=== PATIENT | male | born 1960 | race Two or more races ===

== ENCOUNTER → 2023-08-19 | Outpatient (CLI) | payer MEDICAID ==
[2023-08-19 07:15] LABS: Urine Bacteria None Seen /hpf (None Seen)
[2023-08-19 07:22] LABS: Basophils # (auto) 0.1 10 ^3/uL (0-0.2); Basophils % (auto) 1.3 % (0.0-2.0); Eosinophils # (auto) 0.2 10 ^3/uL (0-0.8); Eosinophils % (auto) 4.4 % (0.0-7.0); Hematocrit 45.9 % (41.0-53.0); Hemoglobin 15.7 g/dL (13.5-17.5); Lymphocytes # (auto) 1.5 10 ^3/uL (0.4-5.4); Lymphocytes % (auto) 29.6 % (10.0-50.0); Mean Corpuscular Hgb Conc. 34.1 g/dL (32.0-36.0); Mean Corpuscular Volume 93.7 fL (80.0-100.0); Monocytes # (auto) 0.4 10 ^3/uL (0-1.3); Neutrophils # (auto) 2.9 10 ^3/uL (1.6-8.6); Neutrophils % (auto) 56.7 % (37.0-80.0); Red Blood Cells 4.91 10^6/uL (4.5-5.90); Red Cell Distribution Width 13.2 % (11.8-14.3); White Blood Cell 5.1 10^3/uL (4.4-10.8)
[2023-08-19 07:32] LABS: Urine Blood Negative /uL (Negative); Urine Clarity Clear (Clear); Urine Color Yellow (Yellow); Urine Mucus FEW (None Seen); Urine Protein, UAD TRACE (Negative); Urine Specific Gravity 1.036 (1.001-1.035); Urine Urobilinogen Normal (Negative); Urine WBC 1 /hpf (0 - 3)
[2023-08-19 07:46] LABS: Creatinine, Urine 210.2 mg/dL (30.0-125.0)
[2023-08-19 07:48] LABS: Alanine Aminotransferase 27 U/L (7-40); Alkaline Phosphatase 130 U/L (46-116); Anion Gap 6 (5-15); BUN/Creatinine Ratio 12.9 (10.0-20.0); Blood Urea Nitrogen 12 mg/dL (9-23); Calcium 9.7 mg/dL (8.5-10.1); Carbon Dioxide 27 mmol/L (20-30); Chloride 105 mmol/L (98-107); Glucose 294 mg/dL (74-106); LDL Cholesterol 166 mg/dL (< 100); Potassium 4.5 mmol/L (3.5-5.1); Sodium 138 mmol/L (136-145); Triglycerides 185 mg/dL (< 150)
[2023-08-19 07:49] LABS: Albumin 4.5 g/dL (3.2-4.8); Aspartate Aminotransferase 16 U/L (13-40); Cholesterol 234 mg/dL (< 200); HDL Cholesterol 55 mg/dL (40-59)
[2023-08-19 07:50] LABS: Bilirubin, Total 0.7 mg/dL (0.2-1.0); Total Protein 7.1 g/dL (5.7-8.2)
== END | disposition home or self-care (01) ==
LOC: LAB 07:01
PROVIDERS: ATTEND Internal Medicine
DX: Z00.01 Encounter for general adult medical examination with abnormal findings (principal); E11.69 Type 2 diabetes mellitus with other specified complication; E78.5 Hyperlipidemia, unspecified; E55.9 Vitamin D deficiency, unspecified; R74.8 Abnormal levels of other serum enzymes; E11.40 Type 2 diabetes mellitus with diabetic neuropathy, unspecified
CPT/HCPCS: 36415; 80053; 80061; 81001; 82043; 82306; 82570; 83036; 84439; 84443; 85025

== ENCOUNTER → 2023-09-30 | Outpatient (CLI) | payer MEDICAID ==
[2023-09-30 06:44] LABS: Urine Bacteria None Seen /hpf (None Seen)
[2023-09-30 06:58] LABS: Urine Blood Negative /uL (Negative); Urine Clarity Clear (Clear); Urine Color Yellow (Yellow); Urine Mucus FEW (None Seen); Urine Protein, UAD Negative (Negative); Urine Specific Gravity 1.027 (1.001-1.035); Urine Urobilinogen Normal (Negative); Urine WBC 1 /hpf (0 - 3); Urine pH 5.5 (5.0-9.0)
[2023-09-30 07:42] LABS: Alanine Aminotransferase 14 U/L (7-40); Albumin 4.4 g/dL (3.2-4.8); Alkaline Phosphatase 120 U/L (46-116); Anion Gap 7 (5-15); Aspartate Aminotransferase < 8 U/L (13-40); BUN/Creatinine Ratio 25.6 (10.0-20.0); Blood Urea Nitrogen 21 mg/dL (9-23); Calcium 9.9 mg/dL (8.7-10.4); Carbon Dioxide 25 mmol/L (20-30); Chloride 106 mmol/L (98-107); Glucose 207 mg/dL (74-106); Potassium 4.6 mmol/L (3.5-5.1); Sodium 138 mmol/L (136-145)
[2023-09-30 07:43] LABS: Bilirubin, Total 0.5 mg/dL (0.2-1.0); Total Protein 6.7 g/dL (5.7-8.2)
== END | disposition home or self-care (01) ==
LOC: LAB 06:17
PROVIDERS: ATTEND Internal Medicine
DX: E11.69 Type 2 diabetes mellitus with other specified complication (principal); E11.40 Type 2 diabetes mellitus with diabetic neuropathy, unspecified; R74.8 Abnormal levels of other serum enzymes; R82.90 Unspecified abnormal findings in urine
CPT/HCPCS: 36415; 80053; 81001

== ENCOUNTER → 2023-12-12 | Outpatient (CLI) | payer MEDICAID ==
[2023-12-12 06:17] LABS: Urine Bacteria None Seen /hpf (None Seen)
[2023-12-12 06:55] LABS: Urine Blood Negative /uL (Negative); Urine Clarity Clear (Clear); Urine Color Light-Yellow (Yellow); Urine Mucus FEW (None Seen); Urine Protein, UAD Negative (Negative); Urine Specific Gravity 1.017 (1.001-1.035); Urine Urobilinogen Normal (Negative); Urine WBC <1 /hpf (0 - 3)
[2023-12-12 06:59] LABS: Alanine Aminotransferase 17 U/L (7-40); Albumin 4.3 g/dL (3.2-4.8); Alkaline Phosphatase 111 U/L (46-116); Anion Gap 5 (5-15); Aspartate Aminotransferase 10 U/L (13-40); BUN/Creatinine Ratio 15.6 (10.0-20.0); Blood Urea Nitrogen 14 mg/dL (9-23); Calcium 9.9 mg/dL (8.7-10.4); Carbon Dioxide 26 mmol/L (20-31); Chloride 109 mmol/L (98-107); Glucose 120 mg/dL (74-106); LDL Cholesterol 101 mg/dL (< 100); Potassium 4.6 mmol/L (3.5-5.1); Sodium 140 mmol/L (136-145); Triglycerides 175 mg/dL (< 150)
[2023-12-12 07:00] LABS: Bilirubin, Total 0.5 mg/dL (0.2-1.0); Cholesterol 164 mg/dL (< 200); HDL Cholesterol 49 mg/dL (40-59); Total Protein 6.8 g/dL (5.7-8.2)
== END | disposition home or self-care (01) ==
LOC: LAB 06:09
PROVIDERS: ATTEND Internal Medicine
DX: I10 Essential (primary) hypertension (principal); E11.69 Type 2 diabetes mellitus with other specified complication
CPT/HCPCS: 36415; 80053; 80061; 81001

== ENCOUNTER → 2024-07-16 | Outpatient (CLI) | payer MEDICAID ==
[2024-07-16 07:35] LABS: Anion Gap 8 (5-15); Carbon Dioxide 27 mmol/L (20-31); Chloride 102 mmol/L (98-107); Potassium 4.7 mmol/L (3.5-5.1); Sodium 137 mmol/L (136-145)
[2024-07-16 07:37] LABS: Calcium 9.4 mg/dL (8.7-10.4)
[2024-07-16 07:41] LABS: BUN/Creatinine Ratio 17.2 (10.0-20.0); Blood Urea Nitrogen 16 mg/dL (9-23)
[2024-07-16 07:42] LABS: Glucose 290 mg/dL (74-106)
[2024-07-16 08:17] LABS: HDL Cholesterol 57 mg/dL (40-59)
[2024-07-16 08:21] LABS: Cholesterol 231 mg/dL (< 200); LDL Cholesterol 164 mg/dL (< 100); Triglycerides 175 mg/dL (< 150)
== END | disposition home or self-care (01) ==
LOC: LAB 06:13
PROVIDERS: ATTEND Internal Medicine
DX: I10 Essential (primary) hypertension (principal); E11.69 Type 2 diabetes mellitus with other specified complication; E78.2 Mixed hyperlipidemia; R74.8 Abnormal levels of other serum enzymes; Z12.5 Encounter for screening for malignant neoplasm of prostate
CPT/HCPCS: 36415; 80048; 80061; 83036; 84153

== ENCOUNTER 2024-08-05 06:02 | Outpatient (CLI) | payer MEDICAID ==
[2024-08-05 07:57] LABS: Alanine Aminotransferase 17 U/L (7-40); Anion Gap 8 (5-15); BUN/Creatinine Ratio 24.7 (10.0-20.0); Carbon Dioxide 25 mmol/L (20-31); Chloride 106 mmol/L (98-107); Sodium 139 mmol/L (136-145); Total Protein 6.6 g/dL (5.7-8.2)
[2024-08-05 07:58] LABS: Albumin 4.4 g/dL (3.2-4.8); Alkaline Phosphatase 125 U/L (46-116); Blood Urea Nitrogen 24 mg/dL (9-23); Creatine Kinase IFCC 80 U/L (46-171); Glucose 290 mg/dL (74-106); Potassium 5.3 mmol/L (3.5-5.1)
[2024-08-05 07:59] LABS: Bilirubin, Total 0.6 mg/dL (0.2-1.0)
[2024-08-05 08:00] LABS: Aspartate Aminotransferase 8 U/L (13-40)
== END 2024-08-05 17:00 | disposition home or self-care (01) ==
LOC: LAB 06:02
PROVIDERS: ATTEND Internal Medicine
DX: E11.40 Type 2 diabetes mellitus with diabetic neuropathy, unspecified (principal); E78.2 Mixed hyperlipidemia; R74.8 Abnormal levels of other serum enzymes
CPT/HCPCS: 36415; 80053; 82550

== ENCOUNTER 2024-10-15 06:08 | Outpatient (CLI) | payer MEDICAID ==
[2024-10-15 07:37] LABS: Alanine Aminotransferase 15 U/L (7-40); Albumin 4.4 g/dL (3.2-4.8); Anion Gap 10 (5-15); BUN/Creatinine Ratio 14.0 (10.0-20.0); Blood Urea Nitrogen 13 mg/dL (9-23); Calcium 9.3 mg/dL (8.7-10.4); Carbon Dioxide 26 mmol/L (20-31); Chloride 103 mmol/L (98-107); Potassium 4.2 mmol/L (3.5-5.1); Sodium 139 mmol/L (136-145); Total Protein 7.0 g/dL (5.7-8.2)
[2024-10-15 07:38] LABS: Bilirubin, Total 0.6 mg/dL (0.2-1.0)
[2024-10-15 07:41] LABS: Alkaline Phosphatase 128 U/L (46-116); Glucose 268 mg/dL (74-106)
[2024-10-15 08:47] LABS: HDL Cholesterol 47 mg/dL (40-59)
[2024-10-15 08:49] LABS: Cholesterol 219 mg/dL (< 200); Triglycerides 157 mg/dL (< 150)
== END 2024-10-15 17:00 | disposition home or self-care (01) ==
LOC: LAB 06:08
PROVIDERS: ATTEND Internal Medicine
DX: E11.69 Type 2 diabetes mellitus with other specified complication (principal); E78.2 Mixed hyperlipidemia; E55.9 Vitamin D deficiency, unspecified; R94.4 Abnormal results of kidney function studies
CPT/HCPCS: 36415; 80053; 80061; 82306; 83036

== ENCOUNTER 2025-01-01 06:04 | Outpatient (CLI) | payer MEDICAID ==
[2025-01-01 07:36] LABS: Chloride 103 mmol/L (98-107); Potassium 4.6 mmol/L (3.5-5.1); Sodium 139 mmol/L (136-145)
[2025-01-01 07:37] LABS: Anion Gap 8 (5-15); Calcium 9.2 mg/dL (8.7-10.4); Carbon Dioxide 28 mmol/L (20-31)
[2025-01-01 07:42] LABS: BUN/Creatinine Ratio 16.5 (10.0-20.0); Blood Urea Nitrogen 15 mg/dL (9-23); Triglycerides 135 mg/dL (< 150)
[2025-01-01 07:54] LABS: Cholesterol 244 mg/dL (< 200); Glucose 256 mg/dL (74-106); HDL Cholesterol 61 mg/dL (40-59)
== END 2025-01-01 17:00 | disposition home or self-care (01) ==
LOC: LAB 06:04
PROVIDERS: ATTEND Internal Medicine
DX: E11.69 Type 2 diabetes mellitus with other specified complication (principal); E78.5 Hyperlipidemia, unspecified; R94.4 Abnormal results of kidney function studies
CPT/HCPCS: 36415; 80048; 80061; 83036